=== PATIENT | female | born 1940 | race Caucasian/White ===

== ENCOUNTER → 2017-01-18 | Day surgery (SDC) | payer MEDICARE, BC ==
[~2017-01-18] MED LIST: ALPR.25 PO; BUPIVACAINE HCL PF 0.75% 30 ML VIAL ONE; CELE200C PO; COMB.05D5 T-DERMAL; FEXO15TA PO; HYDR-3583 PO; HYZA50TA2 PO; LEVO.1 PO; LEXA5TAB PO; MOME17I EACH NARE; PROPOFOL 200 MG/20 ML AMP IV ONE; SYNT88TA PO; TRIAMCINOLONE ACETONIDE 40 MG/ML VIAL I-ARTICULR ONE
--- NOTE | 2017-01-20 09:41 | M6 ---
cc: CHEYENNE TODD M.D. DATE: 01/18/2017 DATE OF : 1940 PROCEDURE Fluoroscopically guided injection bilateral lumbar facet joints (bilateral L2-3, L3-4, L4-5 and L5-S1 facet joints) History and physical was completed and signed. Consent was signed. Procedure site was marked. Medications were listed and reconciled. Pain score was recorded. Allergies were noted. Time out was taken. Fluoroscopy time was recorded where applicable. Sedation was administered or directed by Dr. Todd. The patient was given oxygen. The patient was monitored by a registered nurse. Total procedure time was greater than 15 minutes. IV was started, blood pressure cuff, pulse oximeter EKG were applied. The patient was placed in the prone position on a Cristino table sedated with small amounts of propofol titrated to effect. Vital signs were monitored and remained stable throughout the procedure lumbar area was prepped with alcohol and 10% Betadine solution and draped with sterile drapes. Fluoroscopy was used in a Dmitry dog view to clearly visualize the bilateral lumbar facet joints L2-3, L3-4, L4-5, and L5-S1. Separate sterile 3-1/2-inch 25-gauge spinal needles were advanced into these joints under fluoroscopic guidance. There was negative aspiration for blood or any other type of fluid. And at each location the patient was given 1 mL of 0.75% Marcaine and 10 mg of Kenalog. Following the procedure the patient was taken to the recovery room with stable vital signs neurologically intact. She will be evaluated immediately and with followup to determine if she has a subjective decrease her usual pain and a corresponding objective increase her functional capabilities. W. MD GARIMA Vásquez/franki /10:21 AM /9:35 AM
== END | disposition home or self-care (01) ==
LOC: PHSDC 08:29
PROVIDERS: ATTEND Pain Medicine Interventional Pain Medicine
DX: M54.5 Low back pain (principal); M41.9 Scoliosis, unspecified; M12.88 Other specific arthropathies, not elsewhere classified, other specified site
CPT/HCPCS: 64493; 64494; 64495; 99152; J3301

== ENCOUNTER → 2017-02-01 | Day surgery (SDC) | payer MEDICARE, BC ==
[~2017-02-01] MED LIST changes: -BUPIVACAINE HCL PF 0.75% 30 ML VIAL ONE; -FEXO15TA PO; +IOHEXOL 180 MG/ML 20 ML VIAL (for RAD DIAG) EPIDURAL ONE; +KETOROLAC TROMETHAMINE 30 MG/ML (IVP) VIAL IV PUSH ONE; +LIDOCAINE HCL 1% 30 ML VIAL NERV BLOCK ONE; -MOME17I EACH NARE; +SODIUM CHLORIDE 0.9% 10 ML VIAL ONE; -SYNT88TA PO; -TRIAMCINOLONE ACETONIDE 40 MG/ML VIAL I-ARTICULR ONE; +methylPREDNISolone ACETATE 80 MG/ML VIAL ONE
--- NOTE | 2017-02-01 11:18 | M6 ---
cc: Katelyn TODD DATE 02/01/2017 DATE OF 1940 PROCEDURE Fluoroscopically guided right S1 epidural steroid injection. PROCEDURE NOTE History and physical was completed and signed. Consent was signed. Procedure site was marked. Medications were listed and reconciled. Pain score was recorded. Allergies were noted. Time out was taken. Fluoroscopy time was recorded where applicable. Sedation was administered or directed by Dr. Todd. The patient was given oxygen. The patient was monitored by a registered nurse. Total procedure time was greater than 15 minutes. IV was started, blood pressure cuff, pulse oximeter and EKG were applied. The patient was placed in the prone position on a Cristino table, sedated with small amounts of propofol titrated to effect. Vital signs were monitored and remained stable throughout the procedure. The sacral area was prepped with alcohol and 10% Betadine solution and draped with sterile drapes. Fluoroscopy was used to visualize the right S1 neural foramen. Then a 3-1/2-inch 22-gauge Chiba needle was advanced into the foramen under fluoroscopic guidance. There was negative aspiration for blood or any other type of fluid. Omnipaque dye was injected and was seen to spread along the S1 nerve root as well as spread cephalad around the right L4-5 and L3 nerve roots. At this point, the patient was given 10 mL of half percent Xylocaine 80 mg of Depo-Medrol. Following this, the patient was taken to the recovery room with stable vital signs neurologically intact. MD GARIMA Mckee/EDGAR /10:08 AM /11:14 AM
== END | disposition home or self-care (01) ==
LOC: PHSDC 08:32
PROVIDERS: ATTEND Pain Medicine Interventional Pain Medicine
DX: M54.5 Low back pain (principal); I10 Essential (primary) hypertension; F32.9 Major depressive disorder, single episode, unspecified; F41.9 Anxiety disorder, unspecified
CPT/HCPCS: 62323; 99152; J1040; J1885; Q9965

== ENCOUNTER → 2017-08-16 | Day surgery (SDC) | payer MEDICARE, BC ==
[~2017-08-16] MED LIST changes: +BUPIVACAINE HCL PF 0.5% 30 ML VIAL ONE; +BUPIVACAINE HCL PF 0.75% 30 ML VIAL ONE; -IOHEXOL 180 MG/ML 20 ML VIAL (for RAD DIAG) EPIDURAL ONE; -KETOROLAC TROMETHAMINE 30 MG/ML (IVP) VIAL IV PUSH ONE; -LIDOCAINE HCL 1% 30 ML VIAL NERV BLOCK ONE; -SODIUM CHLORIDE 0.9% 10 ML VIAL ONE; +TRIAMCINOLONE ACETONIDE 40 MG/ML VIAL I-ARTICULR ONE; +methylPREDNISolone ACETATE 40 MG/ML VIAL I-ARTICULR ONE; -methylPREDNISolone ACETATE 80 MG/ML VIAL ONE
--- NOTE | 2017-08-16 08:14 | M6 ---
cc: Katelyn Todd MD DATE: 08/16/2017 PROCEDURE: Fluoroscopically-guided injection right lumbar facet joints (right L3-4, L4-5, and L5-S1 facet joints). PROCEDURE NOTE: History and physical was completed and signed. Consent was signed. Procedure site was marked. Medications were listed and reconciled. Pain score was recorded. Allergies were noted. Time out was taken. Fluoroscopy time was recorded where applicable. Sedation was administered or directed by Dr. Todd. The patient was given oxygen. The patient was monitored by a registered nurse. Total procedure time was greater than 15 minutes. IV was started. Blood pressure cuff, pulse oximeter and EKG were applied. The patient was placed in the prone position on a Cristino table, sedated with small amounts of propofol titrated to effect. Vital signs were monitored and remained stable throughout the procedure. Lumbar area was prepped with alcohol and 10% Betadine solution and draped with sterile drapes. Fluoroscopy was used in a Dmitry dog view to clearly visualize the right lumbar facet joints at L3-4, L4-5, and L5-S1. Separate sterile 3.5-inch, 25-gauge spinal needles were advanced into these joints under fluoroscopic guidance. There was negative aspiration for blood or any other type of fluid and at each location, the patient was given 1 mL of Marcaine 0.75% which contained 10 mg of Kenalog. Following the procedure, the patient was taken to the recovery room with stable vital signs, neurologically intact. MD GARIMA Mckee/JANE , 07:51 AM , 08:13 AM
== END | disposition home or self-care (01) ==
LOC: PHSDC 06:51
PROVIDERS: ATTEND Pain Medicine Interventional Pain Medicine
DX: M53.3 Sacrococcygeal disorders, not elsewhere classified (principal)
CPT/HCPCS: 64493; 64494; 64495; 99152; J1030; J3301

== ENCOUNTER → 2017-10-10 | Day surgery (SDC) | payer MEDICARE, BC ==
[~2017-10-10] MED LIST changes: -BUPIVACAINE HCL PF 0.5% 30 ML VIAL ONE; -BUPIVACAINE HCL PF 0.75% 30 ML VIAL ONE; +LIDOCAINE HCL 1% 30 ML VIAL INFIL ONE; +MEPERIDINE HCL 50 MG/ML VIAL IV ONE; +MIDAZOLAM HCL 2 MG/2 ML VIAL IV ONE; +SODIUM CHLORIDE 0.9% 10 ML VIAL ONE; -TRIAMCINOLONE ACETONIDE 40 MG/ML VIAL I-ARTICULR ONE
--- NOTE | 2017-10-10 08:29 | M6 ---
cc: Katelyn Todd MD DATE: 10/10/2017 PROCEDURE PERFORMED: Radiofrequency ablation posterior lateral branches of L5-S1, S2, and S3 on the left side. History and physical was completed and signed. Consent was signed. Procedure site was marked. Medications were listed and reconciled. Pain score was recorded. Allergies were noted. Time out was taken. Fluoroscopy time was recorded where applicable. Sedation was administered or directed by Dr. Todd. The patient was given oxygen. The patient was monitored by a registered nurse. Total procedure time was greater than 15 minutes. DESCRIPTION: IV was started. Blood pressure cuff, pulse oximeter and EKG were applied. The patient was placed in the prone position on a Cristino table, sedated with small amounts of Propofol and Versed titrated to effect. Vital signs were monitored and remained stable throughout the procedure. The sacral area was prepped with alcohol and 10% Betadine solution and draped with sterile drapes. Fluoroscopy was used to visualize the posterior joint line of the left sacroiliac joint and the L5-S1 sacral ala and the left S1, S2, and S3 neural foramen. The skin was infiltrated with 1% Xylocaine, using a 27-gauge needle. Then, radiofrequency probes with a 10 mm tip were advanced to the target areas which were along the posterior joint line of the left sacroiliac joint, just lateral to the S1, S2, S3 neural foramen and also at the angle of the sacral ala. Thermal lesions took place at 60 degrees x2-1/2 minutes. This was followed by injection of a small amount of Depo-Medrol for a total of 40 mg of Depo-Medrol. Following the procedure, the patient was taken to the recovery room with stable vital signs and neurologically intact. Katelyn Todd MD WRM/TL , 08:17 AM , 08:29 AM
== END | disposition home or self-care (01) ==
LOC: PHSDC 06:36
PROVIDERS: ATTEND Pain Medicine Interventional Pain Medicine
DX: M54.5 Low back pain (principal)
CPT/HCPCS: 64635; 64636; 99152; 99153; J1030; J2175; J2250